=== PATIENT | male | born 1980 | race Caucasian/White ===

== ENCOUNTER 2020-03-11 14:43 | Emergency (ER) | payer SELFPAY ==
[~2020-03-11] VITALS: Ht 175.3 cm; Wt 61.0 kg
[2020-03-11 14:44] VITALS: BP 150/80
[2020-03-11] MEDS ORDERED: TETANUS, DIPHTHERIA, PERTUSSIS VAC/PF 0.5ML (>7YR OLD) IM ONE (15:15)
== END 2020-03-11 16:35 | disposition home or self-care (01) ==
LOC: ER 14:43
DX: S01.81XA Laceration without foreign body of other part of head, initial encounter (principal); S01.01XA Laceration without foreign body of scalp, initial encounter; Y00.XXXA Assault by blunt object, initial encounter; Y93.89 Activity, other specified; Y92.410 Unspecified street and highway as the place of occurrence of the external cause
CPT/HCPCS: 12002; 12013; 90471; 90715; 99284